=== PATIENT | female | born 1990 | race Caucasian/White ===

== ENCOUNTER → 2024-11-04 10:35 | Outpatient (CLI) | payer OTHER, SELFPAY ==
--- NOTE | 2024-11-04 10:37 | DI.US.S_ITS ---
PROCEDURE: US OB <= 14 WEEKS FETUS INDICATIONS: DATING OUTSIDE/PRIOR DATING DATA: Last menstrual period (LMP): 06/24/2025. LMP-based estimated date of delivery ([place]): 05/31/2025. First dating scan (date and location): 11/04/2024. Estimated date of delivery ([place]) from first dating scan: 06/08/2025. TECHNIQUE: Real-time scanning was performed of the fetus and maternal pelvic organs, with image documentation. Endovaginal scanning was also performed to better visualize the fetus and maternal ovaries. COMPARISON: None. FINDINGS: Embryo: pole with crown-rump length measuring 2.4 cm, consistent with 9 weeks and 1 day. Perigestational bleeds measuring 0.9 x 0.4 x 0.7 cm on the right and 2.6 x 0.5 x 0.7 cm. Heart rate: 160 beats per minute Maternal organs: Ovaries within normal limits, left ovarian corpus luteal cyst. Heterogeneous structure within the cervical canal measuring 1.3 x 0.8 x 0.6 cm. IMPRESSION: 1. Single live intrauterine consistent with 9 weeks 1 day. This is discordant with last menstrual period which would be consistent with 10 weeks and 2 days. Recommend clinical correlation. 2. Small perigestational bleeds as described above. 3. Possible heterogeneous structure within the cervix versus heterogeneous appearance of the cervix itself. Recommend attention on follow-up ultrasound. We strive to produce accurate, complete, and clear reports of imaging services. To assist us in improving patient care, this report was composed using standard report templates and voice recognition software. Therefore, it may contain abnormal punctuation, insertions and/or omissions. Occasional wrong-word or sound-alike substitutions may occur. Though we review the report and make efforts to correct it, we do recommend that the report be read carefully in proper context to recognize any text inaccuracies. Dictated by: Shahram Ernandez M.D. on 11/04/2024 at 13:42 Approved by: Shahram Ernandez M.D. on 11/04/2024 at 13:45
== END ==
PROVIDERS: PCP Family Medicine; Referring Provider Family Medicine; Visit Provider Family Medicine
DX: O09.891 Supervision of other high risk pregnancies, first trimester (principal); O46.8X1 Other antepartum hemorrhage, first trimester; N83.12 Corpus luteum cyst of left ovary; Z3A.10 10 weeks gestation of pregnancy
CPT/HCPCS: 76801; 76817

== ENCOUNTER → 2024-11-19 13:00 | Outpatient (CLI) | payer OTHER, SELFPAY ==
[2024-11-19 13:47] LABS: Add Manual Diff / Slide Review NO; Basophils Absolute Auto 100 /uL (0-100); Basophils Percent Auto 0.5 % (0-2); Eosinophils Absolute Auto 300 /uL (0-450); Hematocrit 39.9 % (36-46); Hemoglobin 13.4 g/dL (12.0-16.0); Lymphocytes Absolute Auto 2500 /uL (1100-4500); Lymphocytes Percent Auto 17.7 % (25-40); Mean Corpuscular HGB Conc 33.5 % (30-36); Mean Corpuscular Hemoglobin 29.3 PG (26-34); Mean Corpuscular Volume 87.6 fL (80-100); Monocytes Absolute Auto 700 /uL (0-900); Neutrophils Absolute Auto 10800 /uL (1500-7000); Neutrophils Percent Auto 74.8 % (50-75); Platelet Count 281 X10^3/uL (150-400); Red Blood Cell Count 4.55 X10^6/uL (4.0-5.2); Red Cell Distribution Width 14.1 % (11.6-14.8); White Blood Cell Count 14.4 X10^3/uL (4.5-11.0)
[2024-11-19 14:02] LABS: Appearance Urine UA CLEAR; Bilirubin Urine UA NEGATIVE (NEGATIVE); Color Urine UA YELLOW; Glucose Urine UA NEGATIVE (Negative); Ketones Urine UA NEGATIVE (NEGATIVE); Leukocyte Esterase Urine UA NEGATIVE (NEGATIVE); Nitrite Urine UA NEGATIVE (Negative); Occult Blood Urine UA TRACE-INTACT (Negative); Protein Urine UA NEGATIVE (Negative); Specific Gravity Urine UA 1.015 (1.000-1.035); Urobilinogen Urine UA 0.2 E.U./dL (0.2)
[2024-11-19 14:14] LABS: Natera Collection Specimen Collected
[2024-11-19 15:15] LABS: Urine N gonorrhoeae NOT DETECTED
[2024-11-19 15:33] LABS: Urine Chlamydia NOT DETECTED
[2024-11-19 17:26] LABS: Hepatitis B Surface Antigen NEGATIVE s/c (NEGATIVE); Rubella Antibody IgG 25.7 IU/mL (>15)
[2024-11-19 17:46] LABS: HIV 1 & 2 Ab/Ag 4th Gen Combo NEGATIVE (NEGATIVE); Hep C Virus Ab w/Reflex Quant NEGATIVE s/c (NEGATIVE)
[2024-11-21 00:36] LABS: HSV 1 IGG AB Reactive (Non Reactive); HSV 2 IGG AB Non Reactive (Non Reactive)
[2024-11-21 04:36] LABS: RPR Screen Non Reactive (Non Reactive)
[2024-11-21 08:36] LABS: Varicella IgG Antibody Reactive (Non Reactive)
== END ==
PROVIDERS: PCP Family Medicine; Referring Provider Family Medicine; Visit Provider Family Medicine
DX: O09.891 Supervision of other high risk pregnancies, first trimester (principal)
CPT/HCPCS: 36415; 80055; 81003; 86695; 86696; 86765; 86787; 86803; 86850; 86900; 86901; 87086; 87389; 87491; 87591

== ENCOUNTER → 2025-01-26 11:13 | Outpatient (CLI) | payer OTHER, SELFPAY ==
--- NOTE | 2025-01-26 11:14 | DI.US.S_ITS ---
PROCEDURE: US OB >= 14 WEEKS FETUS INDICATIONS: anatomy scan OUTSIDE/PRIOR DATING DATA: Last menstrual period (LMP): 08/24/2024. LMP-based estimated date of delivery ([place]): 05/31/2025. First dating scan (date and location): 11/04/2024. Estimated date of delivery ([place]) from first dating scan: 06/08/2025. The calculations are made using the ultrasound [place] of 06/08/2025. TECHNIQUE: Real-time scanning was performed of the fetus, with image documentation and biometric measurements. Endovaginal scanning: Not performed COMPARISON: Merged with [facility], OB <= 14 WEEKS FETUS, 11/04/2024, 11:05. FINDINGS: General: A single living intrauterine gestation is present. Presentation: Variable. Placenta: Placental position is fundal, without previa. Amniotic fluid index: 20.3 cm, normal range is 5-24 cm. Single deepest vertical pocket is 7.3 cm. heart rate: 131 beats per minute. Maternal cervical canal: 5.3 cm long. Normal lower limit is 2.5 cm. biometrics: Biparietal diameter: 5.2 cm, 21 weeks 6 days Head circumference: 18.5 cm, 20 weeks 6 days Abdominal circumference: 17.1 cm, 22 weeks 0 days Femur length: 3.6 cm, 21 weeks 3 days Clinically estimated gestational age: 21 weeks 0 days Composite gestational age from present scan: 21 weeks 4 days Estimated weight and percentile: 443 g, 81st percentile. Anatomic survey: Neuro: Ventricles are non-dilated at less than 10 mm. Cisterna magna is normal at 3-11 mm. Cerebellum is normal in size and morphology. Nuchal skin fold: Normal at less than 6 mm between 14-21 weeks gestational age. Face: Nose and lips, facial profile are normal. Spine: No evidence for spina bifida. Heart: 4-chambered heart is present, with normal ventricular outflow tracts. Diaphragm: Diaphragm is intact. Stomach: Left-sided stomach is present. Kidneys: No hydronephrosis. Normal is less than 5 mm in 2nd trimester, less than 7 mm in 3rd trimester. Cord: 3-vessel cord has orthotopic insertion. Bladder: Normal in size. Extremities: All 4 extremities identified. IMPRESSION: 1. Nettles living intrauterine at 21 weeks 4 days based on today's ultrasound. Fetus is in the 81st percentile for weight. 2. Normal placenta and amniotic fluid. 3. Normal and complete anatomic survey. We strive to produce accurate, complete, and clear reports of imaging services. To assist us in improving patient care, this report was composed using standard report templates and voice recognition software. Therefore, it may contain abnormal punctuation, insertions and/or omissions. Occasional wrong-word or sound-alike substitutions may occur. Though we review the report and make efforts to correct it, we do recommend that the report be read carefully in proper context to recognize any text inaccuracies. Dictated by: Thom Go M.D. on 01/26/2025 at 19:37 Approved by: Thom Go M.D. on 01/26/2025 at 19:44
== END ==
PROVIDERS: PCP Family Medicine; Referring Provider Family Medicine; Visit Provider Family Medicine
DX: O09.892 Supervision of other high risk pregnancies, second trimester (principal); Z3A.21 21 weeks gestation of pregnancy
CPT/HCPCS: 76811

== ENCOUNTER → 2025-02-25 09:13 | Outpatient (CLI) | payer OTHER, SELFPAY ==
[2025-02-25 10:51] LABS: Hematocrit 36.6 % (36-46); Hemoglobin 12.1 g/dL (12.0-16.0); Mean Corpuscular HGB Conc 33.1 % (30-36); Mean Corpuscular Hemoglobin 29.0 PG (26-34); Mean Corpuscular Volume 87.6 fL (80-100); Platelet Count 234 X10^3/uL (150-400)
[2025-02-25 11:16] LABS: GTT (PREG) 1 Hour PP 50gm Dose 147 mg/dL (76-139)
[2025-02-26 06:10] LABS: Toxoplasma gohndii IgG <3.0 IU/mL (0.0-7.1)
== END ==
PROVIDERS: PCP Family Medicine; Referring Provider Family Medicine; Visit Provider Family Medicine
DX: O09.899 Supervision of other high risk pregnancies, unspecified trimester (principal); Z20.7 Contact with and (suspected) exposure to pediculosis, acariasis and other infestations
CPT/HCPCS: 36415; 82950; 85027; 86777; 86778

== ENCOUNTER → 2025-03-10 08:53 | Outpatient (CLI) | payer OTHER, SELFPAY ==
[2025-03-10 10:17] LABS: Glucose Fasting Gestational 75 mg/dL (76-95)
[2025-03-10 11:54] LABS: Glucose 1 Hour Gest 173 mg/dL (76-180)
[2025-03-10 12:35] LABS: Glucose Tol Interp,Gestational INTERPRETATION
[2025-03-10 12:43] LABS: Glucose 2 Hour Gest 134 mg/dL (76-155)
[2025-03-10 13:14] LABS: Glucose 3 Hour Gest 179 mg/dL (76-140)
== END ==
PROVIDERS: PCP Family Medicine; Referring Provider Family Medicine; Visit Provider Family Medicine
DX: O09.899 Supervision of other high risk pregnancies, unspecified trimester (principal)
CPT/HCPCS: 36415; 82951; 82952

== ENCOUNTER → 2025-05-14 10:29 | Outpatient (CLI) | payer OTHER, SELFPAY ==
[2025-05-15 09:35] LABS: Strep Grp B PCR NEG for Grp B Strep
== END ==
PROVIDERS: PCP Family Medicine; Visit Provider Family Medicine
DX: Z34.93 Encounter for supervision of normal pregnancy, unspecified, third trimester (principal); Z3A.36 36 weeks gestation of pregnancy
CPT/HCPCS: 87653